=== PATIENT | male | born 1975 | race Two or more races ===

== ENCOUNTER 2025-09-20 04:39 | Inpatient (IN) | payer BC, SELFPAY ==
[2025-09-20] VITALS (22 sets, daily range): BP systolic 122–202; BP diastolic 62–116; PULSE 60–84; RESP 14–19; TEMP 36.1–37.1; O2SAT 95–99; BMI 26.3
--- NOTE | 2025-09-20 04:48 | EKG_ITS ---
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
--- NOTE | 2025-09-20 04:59 | XR_ITS ---
EXAMINATION: PA chest single view TECHNIQUE: Upright PA chest single view Date and time: September 20, 2025, 0457 hours INDICATIONS: Sudden onset chest pain radiating to the left arm today FINDINGS: Normal heart size No pneumonia or pulmonary edema. Old left clavicle fracture IMPRESSION: No active disease
--- NOTE | 2025-09-20 04:59 | PD.EDRME ---
Rapid Medical Screening Exam RME Arrival date/time: 09/20/25 04:39 50M with no significant PMH presents to ED with 1 hour of sudden L CP that radiates to LUE. Patient denies SOB and URI symptoms, as well as drug/alcohol use. Patient describes the pain as burning. There is also some nausea. Chief Complaint: Chest Pain Vital signs: Vital Signs Temperature 98.1 F 09/20/25 04:46 Pulse Rate 84 09/20/25 04:46 Respiratory Rate 19 09/20/25 04:46 Blood Pressure 202/106 H 09/20/25 04:46 Pulse Oximetry (%) 96 09/20/25 04:46 Oxygen Delivery Method Room Air 09/20/25 04:46
[2025-09-20] MEDS: FAMOTIDINE 20 MG TABLET 40 MG PO (05:07)
[2025-09-20] MEDS: ONDANSETRON ODT 4 MG TABRAP PO (05:07)
[2025-09-20 05:37] LABS: Amphetamine/Methamp Scrn,U Negative (Negative); Barbiturate Screen,Urine Negative (Negative); Benzodiazepines Screen,Urine Negative (Negative); Benzoylecgonine Screen, Ur Negative (Negative); Fentanyl Screen,Urine Negative (Negative); Opiate Screen,Urine Negative (Negative); THC Screen,Urine Negative (Negative)
[2025-09-20 06:16] LABS: Basophils # (Auto) 0.1 Thou/mm3 (0.0-0.2); Basophils % (Auto) 1 % (0-2.5); Eosinophils # (Auto) 0.5 Thou/mm3 (0.0-0.5); Eosinophils % (Auto) 4 % (0-10); Hematocrit 45.2 % (41.0-53.0); Hemoglobin 15.4 g/dL (13.5-16.0); Immature Granulocytes Auto 0.11 Thou/mm3 (0.00-0.00); Lymphocytes # (Auto) 2.2 Thou/mm3 (1.0-4.8); Lymphocytes % (Auto) 17 % (10-50); Mean Corpuscular HGB Conc 34.1 g/dl (31.0-37.0); Mean Corpuscular Hemoglobin 31.2 pg (25.0-35.0); Mean Corpuscular Volume 92 fL (80-100); Monocytes # (Auto) 0.6 Thou/mm3 (0.0-0.8); Monocytes % (Auto) 5 % (0-12); Neutrophils # (Auto) 9.7 Thou/mm3 (1.8-7.7); Neutrophils % (Auto) 74 % (37-80); Nucleated Red Blood Cell # 0.00 Thou/mm3 (0.00-0.00); Nucleated Red Blood Cell % 0 /100 WBC (0); Platelet Count 189 Thou/mm3 (140-440); RDW Standard Deviation 46.5 fL (35.1-43.9); Red Blood Count 4.94 Miln/mm3 (4.50-5.90); White Blood Count 13.1 Thou/mm3 (3.8-10.6)
[2025-09-20 06:27] LABS: INR 1.0 (0.9-1.3); Partial Thromboplastin Time 34.7 Seconds (22.0-36.0); Prothrombin Time 10.7 Seconds (9.0-12.2)
[2025-09-20 06:37] LABS: Alanine Aminotransferase 19 U/L (10-49); Albumin, Serum 4.5 gm/dL (3.5-5.0); Albumin/Globulin Ratio 2.1 (1.2-2.2); Alkaline Phosphatase 91 U/L (46-116); Anion Gap 11 (7-16); Aspartate Amino Transferase 42 U/L (0-34); BUN/Creatinine Ratio 12 Ratio (12-20); Bilirubin,Total 0.5 mg/dL (0.3-1.2); Blood Urea Nitrogen 12 mg/dL (9-23); Calcium 9.0 mg/dL (8.3-10.6); Calcium (Corrected) 9.0 mg/dL (8.5-10.1); Carbon Dioxide 20.0 mMol/L (20.0-31.0); Chloride 111 mMol/L (98-107); Creatinine (Component) 1.0 mg/dL (0.6-1.3); Estimated Creatinine Clearance 76.0 mL/min (>60); Globulin 2.1 gm/dL (2.3-3.5); Glucose 165 mg/dL (74-106); Osmolality,Calculated 286 (275-295); Potassium 4.1 mMol/L (3.4-5.1); Sodium 142 mMol/L (136-145); Total Protein 6.6 gm/dL (5.7-8.2); eGFR > 60 See Note
[2025-09-20 06:39] LABS: Troponin I 2.879 ng/mL (0.0-0.045)
--- NOTE | 2025-09-20 10:16 | EDNOTE_ITS ---
ED Chest Pain RME/HPI General Chief Complaint: Chest Pain Stated Complaint: CHEST PAIN Arrival date/time: 09/20/25 04:39 RME / HPI RME / HPI narrative: 09/20/25 04:39 50M with no significant PMH presents to ED with 1 hour of sudden L CP that radiates to LUE. Patient denies SOB and URI symptoms, as well as drug/alcohol use. Patient describes the pain as burning. There is also some nausea. DR. VELA MAIN ED EVALUATION 50 year old male patient with no known chronic medical history presents to the ED for evaluation of chest pain that woke him from sleep at 04:00 AM today. Described as pressure burning sensation located most to the left side, rating 8/10 in severity. Accompanied by sweats and nausea. Denies exacerbating/relieving factors. No history of similar chest pain. Denies fever, chills. Denies shortness of breath. Related Data Allergies Allergy/AdvReac Type Severity Reaction Status Date / Time No Known Allergies Allergy Verified 09/20/25 04:43 Review of Systems Review of Systems Systems Reviewed: All systems reviewed, normal except as documented Past Medical History Past Medical History CARDIAC: Negative Congestive Heart Failure RESPIRATORY: Negative Chronic Obstructive Pulmonary Disease (COPD) GENITOURINARY: Negative Renal Disease ENDOCRINE: Negative Diabetes Mellitus Type 1 or Diabetes Mellitus Type 2 Social History SMOKING STATUS: Current every day smoker ED Exam Narrative Physical exam: GENERAL APPEARANCE: alert and oriented x 4, well-developed, well-nourished HEENT: Normocephalic, atraumatic; pupils equal, round, reactive to light; EOMI; mucous membranes pink, moist; oropharynx clear NECK: Supple LUNGS: CTABL; no wheezes, no rales, no rhonchi HEART: Regular rate, regular rhythm; normal S1, S2; no murmurs ABDOMEN: non distended; normal BS; soft, no tenderness, no guarding, no rebound; no masses, no organomegaly, no hernia EXTREMITIES: atraumatic; no edema NEUROLOGIC: awake; alert and oriented x4; cranial nerves II-XII grossly intact; no focal sensory or motor deficits PSYCHIATRIC: appropriate mood and affect SKIN: warm, dry, normal color; no rashes Course Quality Measures none Orders Category Date Time Status Admit to Inpatient Status Routine Admission 09/20/25 09:48 Active Patient Condition Routine Admission 09/20/25 09:48 Ordered Activity as Tolerated Routine Care 09/20/25 09:49 Ordered Continuous Pulse Oximetry NOW Care 09/20/25 09:48 Completed EKG (ED ONLY) *Do not use* NOW Care 09/20/25 04:48 Completed Flu & Pneumonia Vaccine Screen ONCE Care 09/20/25 09:48 Active NPO NOW Care 09/20/25 09:49 Active Notify provider NEEDED Care 09/20/25 09:48 Active Notify provider NOW Care 09/20/25 09:50 Active Obtain weight daily Care 09/20/25 09:49 Active Sequential Compression Device QSHIFT Care 09/20/25 09:48 Active Consult to Cardiology Stat Cons 09/20/25 09:46 Ordered Diet NPO (NOW) Diet 09/20/25 09:49 Active CA echo doppler complete Routine Exams 09/20/25 09:50 Stop Req EKG (ED Only) Stat Exams 09/20/25 04:48 Draft XR chest 1V portable Stat Exams 09/20/25 04:59 Completed CBC AM DRAW Lab 09/21/25 05:00 Ordered CBC AM DRAW Lab 09/22/25 05:00 Ordered CBC AM DRAW Lab 09/23/25 05:00 Ordered CBC Stat Lab 09/20/25 06:00 Completed Comprehensive Metabolic Panel AM DRAW Lab 09/21/25 05:00 Ordered Comprehensive Metabolic Panel AM DRAW Lab 09/22/25 05:00 Ordered Comprehensive Metabolic Panel AM DRAW Lab 09/23/25 05:00 Ordered Comprehensive Metabolic Panel Stat Lab 09/20/25 06:00 Completed Drug Screen,Urine Stat Lab 09/20/25 05:06 Completed Lipid Panel AM DRAW Lab 09/21/25 05:00 Ordered Magnesium AM DRAW Lab 09/21/25 05:00 Ordered Partial Thromboplastin Time AM DRAW Lab 09/22/25 05:00 Ordered Partial Thromboplastin Time Stat Lab 09/20/25 06:00 Completed Phosphorous AM DRAW Lab 09/21/25 05:00 Ordered Prothrombin Time with INR AM DRAW Lab 09/22/25 05:00 Ordered Prothrombin Time with INR Stat Lab 09/20/25 06:00 Completed Thyroid Stimulating Hormone AM DRAW Lab 09/21/25 05:00 Ordered Troponin I Q6H Lab 09/20/25 11:03 Completed Troponin I Q6H Lab 09/20/25 17:00 Ordered Troponin I Q6H Lab 09/20/25 23:00 Ordered Troponin I Stat Lab 09/20/25 06:00 Completed Aspirin Med 09/20/25 04:59 Discontinued 325 mg PO X1 ONE Aspirin [Ecotrin] Med 09/21/25 09:00 Active 81 mg PO QDAY Atorvastatin Calcium [Lipitor] Med 09/20/25 21:00 Active 40 mg PO HS Famotidine [Pepcid] Med 09/20/25 04:59 Discontinued 40 mg PO X1 ONE Heparin Inj Med 09/20/25 09:48 Discontinued 4,000 unit IV X1 ONE Heparin/D5w 25K 250 ML Ivpb [Heparin in D5w Ivpb] Med 09/20/25 10:00 Active 25,000 unit in 250 ml IV 12 units/kg/hr Labetalol IV [Trandate IV] Med 09/20/25 06:41 Discontinued 10 mg IVP X1 ONE Ondansetron Inj [Zofran Inj] Med 09/20/25 09:48 Active 4 mg IVP Q6H PRN Ondansetron Odt [Zofran Odt] Med 09/20/25 04:59 Discontinued 4 mg PO X1 ONE Code Status Routine Oth 09/20/25 09:48 Ordered Vital Signs Vital signs: Vital Signs Temperature 98.1 F 09/20/25 04:46 Pulse Rate 84 09/20/25 04:46 Respiratory Rate 19 09/20/25 04:46 Blood Pressure 202/106 H 09/20/25 04:46 Pulse Oximetry (%) 96 09/20/25 04:46 Oxygen Delivery Method Room Air 09/20/25 04:46 Pulse ox is 96% on room air which is adequate. Chest Pain MDM Narrative MDM Narrative:: Roselia John am scribing for and in the presence of Dr. Vela. Patient data External records reviewed:: None (No previous ER visits for review ) Clinical information provided by:: patient Social determinants that could affect healthcare access:: none Patient has the following chronic illnesses:: No known chronic medical history How is presenting disease/condition affected by chronic disease/condition?: no chronic disease Evaluation data The following diagnostics were reviewed and interpreted by me:: lab results, radiology exam(s) and EKG tracing(s) (EKG @ 04:49 AM. Sinus rhythm, rate 82, T- wave inversion in V1, slight ST depression in lead III, no STEMI. ) Lab and/or radiology exams considered but not ordered:: None Interpretation Summary: Ordering Physician: Gatito Ricardo PA-C Date of Service: 09/20/25 Procedure(s): XR chest 1V portable Accession Number(s): [id number] cc: Romeo Brito MD; Brayan Barakat MD; Gatito Ricardo PA-C~ EXAMINATION: PA chest single view TECHNIQUE: Upright PA chest single view Date and time: September 20, 2025, 0457 hours INDICATIONS: Sudden onset chest pain radiating to the left arm today FINDINGS: Normal heart size No pneumonia or pulmonary edema. Old left clavicle fracture IMPRESSION: No active disease Dictated By: Brayan Barakat MD Signed By: <Electronically signed by Brayan Barakat MD in OV> 09/20/25 075 Medications / Prescriptions Medications or Prescriptions considered but not ordered:: None Medication administrations:: Medication Administration History Aspirin (Aspirin Ec 81 Mg Tabec) 81 mg PO QDAY TYRESE Stop: 10/21/25 08:59 Atorvastatin Calcium (Atorvastatin Calcium 20 Mg Tablet) 40 mg PO HS TYRESE Stop: 10/20/25 20:59 Heparin Sodium/Dextrose (Heparin In D5w Ivpb) 25,000 unit in 250 mls @ 8.61 mls/hr IV .Q24H TYRESE; Protocol Stop: 10/04/25 09:59 Last Admin: 09/20/25 11:00 Dose: 12 units/kg/hr, 8.61 mls/hr Documented By: AA Co-signed By: SERINA Ondansetron HCl (Ondansetron Inj 2 Mg/Ml Inj 2 Ml) 4 mg IVP Q6H PRN; Protocol PRN Reason: NAUSEA OR VOMITING Stop: 10/20/25 09:47 Discontinued Medications Aspirin (Aspirin 325 Mg Tablet) 325 mg PO X1 ONE Stop: 09/20/25 05:00 Last Admin: 09/20/25 05:07 Dose: 325 mg Documented By: CHAVEZ Atropine Sulfate (Atropine Sulf Inj 1 Mg/Ml Vial) Confirm Administered Dose 1 mg .ROUTE .STK-MED ONE Stop: 09/20/25 12:44 Epinephrine HCl (Epinephrine Inj 0.1 Mg/Ml Syringe 10ml) Confirm Administered Dose 1 mg .ROUTE .STK-MED ONE Stop: 09/20/25 12:45 Famotidine (Famotidine 20 Mg Tablet) 40 mg PO X1 ONE Stop: 09/20/25 05:00 Last Admin: 09/20/25 05:07 Dose: 40 mg Documented By: CHAVEZ Fentanyl Citrate (Fentanyl Cit Inj 50 Mcg/Ml Amp 2ml) Confirm Administered Dose 100 mcg .ROUTE .STK-MED ONE Stop: 09/20/25 12:44 Flumazenil (Flumazenil Inj 0.1 Mg/Ml Vial 10 Ml) Confirm Administered Dose 1 mg .ROUTE .STK-MED ONE Stop: 09/20/25 12:44 Heparin Sodium (Porcine) (Heparin Sod Inj 5000 Unit/Ml Vial) 4,000 unit IV X1 ONE; Protocol Stop: 09/20/25 09:49 Last Admin: 09/20/25 10:58 Dose: 4,000 unit Documented By: MARCELA Co-signed By: SERINA Heparin Sodium (Porcine) (Heparin Sod Inj 1000 Unit/Ml Vial 10 Ml) Confirm Administered Dose 20,000 unit .ROUTE .STK-MED ONE Stop: 09/20/25 12:45 Nitroglycerin/Dextrose (Nitroglycerin In D5w Ivpb) Confirm Administered Dose 50 mg in 250 mls @ ud .ROUTE .STK-MED ONE Stop: 09/20/25 12:45 Labetalol HCl (Labetalol Inj 5 Mg/Ml Vial 20 Ml) 10 mg IVP X1 ONE Stop: 09/20/25 06:42 Last Admin: 09/20/25 06:52 Dose: Not Given Documented By: CIRILO Non-Admin Reason: Cancelled by Provider Lidocaine HCl (Lidocaine Inj Pf 1% 30 Ml Vial) Confirm Administered Dose 30 ml .ROUTE .STK-MED ONE Stop: 09/20/25 12:45 Metoprolol Tartrate (Metoprolol Tartrate Inj 1 Mg/Ml Amp 5 Ml) Confirm Administered Dose 15 mg .ROUTE .STK-MED ONE Stop: 09/20/25 12:44 Midazolam HCl (Midazolam Inj 1 Mg/Ml Vial 2 Ml) Confirm Administered Dose 2 mg .ROUTE .STK-MED ONE Stop: 09/20/25 12:43 Naloxone HCl (Naloxone Inj 0.4 Mg/Ml Vial) Confirm Administered Dose 1.2 mg .ROUTE .STK-MED ONE Stop: 09/20/25 12:44 Ondansetron HCl (Ondansetron Odt 4 Mg Tabrap) 4 mg PO X1 ONE; Protocol Stop: 09/20/25 05:00 Last Admin: 09/20/25 05:07 Dose: 4 mg Documented By: CHAVEZ Phenylephrine HCl (Phenylephrine Inj In Ns 100 Mcg/Ml 10 Ml Syringe) Confirm Administered Dose 1,000 mcg .ROUTE .STK-MED ONE Stop: 09/20/25 12:45 See above Consultations Consultation(s) initiated? (list below): Yes Consultation #1 (Physician, Specialty, Details): I spoke with computer systems information director Dr. Tavares. Consultation #2 (Physician, Specialty, Details): I spoke with hospitalist team B for admission. Diagnosis Most likely diagnosis given after review of the tests above:: Chest pain Elevated troponin Admission Indicated Admission indicated?: indicated Admission Request Was there a request for admission?: Yes Admission Attestation Admission request attestation: Discussed case with [] from Hospitalist service regarding admission. Discussed patients ED course, exam findings, labs, and radiology results. The Hospitalist [agrees,declines] to accept the patient for admission. Disposition Plan Disposition Plan: Admit Critical Care Time Critical Care Time Critical Care Time: Yes Total Critical Care Time (min.): 35 Attestation: The high probability of sudden, clinically significant deterioration in the patient's condition required the highest level of my preparedness to intervene urgently. The services I provided to this patient were to treat and/or prevent clinically significant deterioration. Services included the following: chart data review, reviewing nursing notes and/or old charts, documentation time, water resource consultant collaboration regarding findings and treatment options, medication orders and management, direct patient care, vital sign assessments and ordering, interpreting and reviewing diagnostic studies and lab tests. Aggregate critical care time includes only time during which I was engaged in work directly related to the patient's care, as described above, whether at bedside or elsewhere in the Emergency Department. It did not include time spent performing other reported procedures or the services of residents, students, nurses or physician assistants. Discharge Plan Plan Patient Disposition: Admit Acute Care w/in Hospital Problem List Clinical Impression: Chest pain, Elevated troponin
--- NOTE | 2025-09-20 10:56 | PC.NURSE ---
CARDIOLOGY ALUMDALA AT BEDSIDE SPEAKING WITH PATIENT AND FAMILY.
[2025-09-20] MEDS: HEPARIN SOD INJ 5000 UNIT/ML VIAL 4000 UNIT IV (10:58)
[2025-09-20] MEDS: Heparin/D5w 25K 250 ML Ivpb 25,000 UNIT/250 ML BAG 8.61 UNIT IV ×2 (11:00→18:31)
--- NOTE | 2025-09-20 11:26 | PC.NURSE ---
Patient OOB, ambulated to restroom, no apparent distress noted. Patient remains alert/oriented, denies chest pain at this time.
--- NOTE | 2025-09-20 11:35 | PC.NURSE ---
DR SAENZ AT BEDSIDE SPEAKING WITH PATIENT AND SPOUSE
--- NOTE | 2025-09-20 11:49 | ESHP_ITS ---
<Statement entered by Susana Vasquez MD - 09/25/25 08:35> I reviewed above note and agree with findings and plans. I have also personally examined the patient with medicine team and went over assessment and plan with medical team including project management intern and resident physician. Documentation for date of: 09/20/25 HPI History of Present Illness Chief complaint: Chest pain History of present illness: 50 year old male with history of tobacco dependence (>30 pack year), alcohol-use disorder, family history of stroke/heart attack presented to the ED on 09/20 with chest pain. Patient's ida provided history regarding the patient. Patient was apparently getting ready for work when he started to feeling chest pressure. As per , he looked winded and seemed off which prompted them to come to the ED. Patient denies any symptoms of palpitations, shortness of breath, dizziness, syncope, orthopnea or PND. 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 Pertinent lab findings include WBC of 13.1, hemoglobin of 15.4, creatinine 1.0, BUN 12, AST 42, ALT 19, troponin initially was 2.879 has up trended to 45.494, U tox was negative, EKG showed sinus rhythm with some ST elevations noted in the lateral leads and chest x-ray was largely negative. Cardiology was consulted and recommended starting patient on IV heparin to take to cardiac Data Analysis Manager for NSTEMI Patient admitted for NSTEMI type I will be treated with IV heparin, Data Analysis Manager for likely stent placement and close follow-up. Exam Vital Signs Temp Pulse Resp BP Pulse Ox O2 Del Method 97.6 F 72 16 148/95 H 97 Room Air 09/20/25 10:29 09/20/25 10:29 09/20/25 10:29 09/20/25 10:29 09/20/25 10:29 09/20/25 10:29 Narrative Exam Physical Exam: GENERAL: Awake, answering questions appropriately in Bengali HEENT: NC/AT. Moist mucosa. PERRLA/EOMI. Poor dentition. CARDIO: Heart RRR, no obvious murmurs, no JVD. PULM: No coughing or visible SOB. Lungs CTA B/L. GI: Abdomen soft, NT/ND, +BS. SKIN/MSK/EXT: No wounds/discoloration/rashes/edema/amputations. +Pedal pulses present B/L. NEURO: Oriented x3, Moves extremities x4, no focal neurologic deficits Results: Labs 09/20/25 06:00 09/20/25 06:00 Labs: Short CBC 09/20/25 Range/Units 06:00 WBC 13.1 H (3.8-10.6) Thou/mm3 Hgb 15.4 (13.5-16.0) g/dL Hct 45.2 (41.0-53.0) % Plt Count 189 (140-440) Thou/mm3 BMP 09/20/25 06:00 Sodium 142 Potassium 4.1 Chloride 111 H Carbon Dioxide 20.0 BUN 12 Creatinine 1.0 Glucose 165 H Calcium 9.0 Cardiac Enzymes 09/20/25 Range/Units 06:00 Troponin I 2.879 H* (0.0-0.045) ng/mL Liver Function 09/20/25 Range/Units 06:00 Total Bilirubin 0.5 (0.3-1.2) mg/dL AST 42 H (0-34) U/L ALT 19 (10-49) U/L Alkaline Phosphatase 91 (46-116) U/L Albumin 4.5 (3.5-5.0) gm/dL Quality Measures Quality Measures none Medications Home Medications and Allergies Allergies Allergy/AdvReac Type Severity Reaction Status Date / Time No Known Allergies Allergy Verified 09/20/25 04:43 Visit Medications Aspirin (Aspirin Ec 81 Mg Tabec) 81 mg PO QDAY TYRESE Stop: 10/21/25 08:59 Atorvastatin Calcium (Atorvastatin Calcium 20 Mg Tablet) 40 mg PO HS TYRESE Stop: 10/20/25 20:59 Heparin Sodium/Dextrose (Heparin In D5w Ivpb) 25,000 unit in 250 mls @ 8.61 mls/hr IV .Q24H TYRESE; Protocol Stop: 10/04/25 09:59 Last Admin: 09/20/25 11:00 Dose: 12 units/kg/hr, 8.61 mls/hr Ondansetron HCl (Ondansetron Inj 2 Mg/Ml Inj 2 Ml) 4 mg IVP Q6H PRN; Protocol PRN Reason: NAUSEA OR VOMITING Stop: 10/20/25 09:47 Discontinued Medications Aspirin (Aspirin 325 Mg Tablet) 325 mg PO X1 ONE Stop: 09/20/25 05:00 Last Admin: 09/20/25 05:07 Dose: 325 mg Famotidine (Famotidine 20 Mg Tablet) 40 mg PO X1 ONE Stop: 09/20/25 05:00 Last Admin: 09/20/25 05:07 Dose: 40 mg Heparin Sodium (Porcine) (Heparin Sod Inj 5000 Unit/Ml Vial) 4,000 unit IV X1 ONE; Protocol Stop: 09/20/25 09:49 Last Admin: 09/20/25 10:58 Dose: 4,000 unit Labetalol HCl (Labetalol Inj 5 Mg/Ml Vial 20 Ml) 10 mg IVP X1 ONE Stop: 09/20/25 06:42 Last Admin: 09/20/25 06:52 Dose: Not Given Ondansetron HCl (Ondansetron Odt 4 Mg Tabrap) 4 mg PO X1 ONE; Protocol Stop: 09/20/25 05:00 Last Admin: 09/20/25 05:07 Dose: 4 mg Assessment & Plan Plan 50 year old male with history of tobacco dependence (>30 pack year), alcohol-use disorder, family history of stroke/heart attack presented with chest pain was admitted for NSTEMI type I will be treated with IV heparin, Data Analysis Manager for likely stent placement and close follow-up. #NSTEMI type I #Acute coronary syndrome Patient presenting with typical chest pain symptoms as noted above in HPI 53?points RA Score 0.8?% Probability of from admission to 6 months Will calculate ASCVD risk score troponin initially was 2.879 has up trended to 45.494 EKG showed sinus rhythm with some ST elevations noted in the lateral leads and chest x-ray was largely negative Cardiology was consulted and recommended starting patient on IV heparin to take to cardiac Data Analysis Manager for NSTEMI Plan: Echo ordered, pending read Continue IV heparin drip for ACS for 2 additional days Aspirin, high intensity statin, Plavix, metoprolol tartrate 25 mg p.o. twice daily for ACS Cardiology consulted, appreciate recommendations status post left heart cath pending report Follow-up on lipid panel, TSH and A1c Keep magnesium greater than 2 and potassium greater than 4 Patient will need close monitoring outpatient and cardiology referral once ready to be discharged #Hypertensive emergency #Hypertension As noted above, patient presented with hypertensive emergency with a blood pressure of 202/106 and endorgan dysfunction noted by troponin anemia Patient was given labetalol 10 mg x 1 which largely improved systolic blood pressure to low 160 and diastolic in the 90s Plan: Will await left heart cath results and consider adding antihypertensives when patient is stable #Alcohol use disorder As per patient's family at bedside, patient drinks multiple glasses of tequila daily along with beer on the weekends Patient's last drink was yesterday noted to have three fourths of a cup of tequila Plan: Will commence CIWA protocol with as needed Ativan #Tobacco dependence Patient smokes around 1 pack a day for the past 30 years Plan: Will hold off on nicotine patch at this time Counseled on complete cessation from tobacco use Health Maintenance: Lines: PIV Diet: Will advance to cardiac Bowel: Not needed at this time GI prophylaxis: Not needed DVT prophylaxis: On heparin drip for 2 days Dispo: Pending cardiac clearance, left heart cath completed Code: Full Patient seen and assessed with attending Dr. Christina Sandra, DO PGY-2 Internal Medicine - [facility]
[2025-09-20 11:55] LABS: Troponin I 45.494 ng/mL (0.0-0.045)
--- NOTE | 2025-09-20 12:04 | PC.NURSE ---
REPORT GIVEN TO MASON FOSTER PATIENT TRANSFERRING TO WAITRESS FOR PROCEDURE.
--- NOTE | 2025-09-20 13:13 | PD.RESCONSUL ---
HPI Data of Consult Requesting Physician: Edward Sandra MD Admitting Provider: Susana Vasquez MD Attending Provider: Edward Sandra MD Primary Care Provider: Romeo Brito MD Consult Narrative History of present illness: Patient is a Burmese speaking 50 year old male with PMH of tobacco abuse, alcohol abuse, family history of heart attack who presents on 09/20 for 10 out of 10 left-sided chest pain that radiated down his left arm earlier this morning. Improved with nitro. Currently denies any chest pain, shortness of breath, palpitations. Denies history of hypertension, HLD, and diabetes as he does not follow-up with a PCP, not on any medications. On admission, BP 202/160, HR 84, RR 19. Saturating well on room air. WBC 13.1 Hgb 15.4, creatinine 1.0, BUN 12. Troponin 2.879 -> 45.494. EKG at 4 AM showed sinus rhythm with Q waves in aVL and <[address] depression lead III, HR 82. Repeat EKG at around 10 AM showed T wave inversions in lead III with same Q waves. CXR was unremarkable. Patient was started on IV heparin. Echo completed at bedside. Prior to procedure, discussed with patient the risk, benefits, and alternatives of performing a cardiac catherization including the risks of bleeding, heart attack, stroke, pericardial effusion, respiratory failure with mechanical ventilation, and in detail with the patient. Patient understands the risks and benfits with the procedure. Consent signed and placed in the chart. Sent to microbiology lab assistant for NSTEMI. Past Medical History: as above Family History: Mother had NM in her 60s, had stent placed. Father passed from liver disease secondary to alcohol abuse. Surgical History: None Social History: Smoked 1 pack/day for more than 30 years. Heavy alcohol consumption for at least 20 years, drinks at least 4 times a week. Denies any illicit drug use. Lives at home with and kids. Current Medications: None Allergies: No known drug allergies cc:: cc: Edward Sandra MD Exam Vital Signs Temp Pulse Resp BP Pulse Ox O2 Del Method 98.2 F 74 16 152/96 H 96 Room Air 09/20/25 12:41 09/20/25 12:41 09/20/25 12:41 09/20/25 12:41 09/20/25 12:41 09/20/25 12:41 Narrative Exam Physical Exam General: Awake and in no acute distress. Conversational and non-toxic appearing. Burmese-speaking male. HEENT: Normocephalic, atraumatic, mucous membranes moist. Heart: Regular rate and rhythm, normal S1 and S2, no murmurs appreciated. Lungs: Clear to auscultation with no wheezing or crackles. Abdomen: Soft, nondistended, nontender, positive bowel sounds. No guarding or rebound tenderness. Neurologic: Alert and oriented x3, no gross neurological deficit, and patient able to move all 4 extremities. Extremities: No edema. Skin: No rash or ecchymoses. Results Labs 09/20/25 06:00 09/20/25 06:00 Labs: Short CBC 09/20/25 Range/Units 06:00 WBC 13.1 H (3.8-10.6) Thou/mm3 Hgb 15.4 (13.5-16.0) g/dL Hct 45.2 (41.0-53.0) % Plt Count 189 (140-440) Thou/mm3 BMP 09/20/25 06:00 Sodium 142 Potassium 4.1 Chloride 111 H Carbon Dioxide 20.0 BUN 12 Creatinine 1.0 Glucose 165 H Calcium 9.0 Cardiac Enzymes 09/20/25 09/20/25 Range/Units 06:00 11:03 Troponin I 2.879 H* 45.494 H* D (0.0-0.045) ng/mL Liver Function 09/20/25 Range/Units 06:00 Total Bilirubin 0.5 (0.3-1.2) mg/dL AST 42 H (0-34) U/L ALT 19 (10-49) U/L Alkaline Phosphatase 91 (46-116) U/L Albumin 4.5 (3.5-5.0) gm/dL Quality Measures Quality Measures none Medications Home Medications and Allergies Allergies Allergy/AdvReac Type Severity Reaction Status Date / Time No Known Allergies Allergy Verified 09/20/25 04:43 Visit Medications Aspirin (Aspirin Ec 81 Mg Tabec) 81 mg PO QDAY TYRESE Stop: 10/21/25 08:59 Atorvastatin Calcium (Atorvastatin Calcium 20 Mg Tablet) 40 mg PO HS TYRESE Stop: 10/20/25 20:59 Heparin Sodium/Dextrose (Heparin In D5w Ivpb) 25,000 unit in 250 mls @ 8.61 mls/hr IV .Q24H TYRESE; Protocol Stop: 10/04/25 09:59 Last Admin: 09/20/25 11:00 Dose: 12 units/kg/hr, 8.61 mls/hr Ondansetron HCl (Ondansetron Inj 2 Mg/Ml Inj 2 Ml) 4 mg IVP Q6H PRN; Protocol PRN Reason: NAUSEA OR VOMITING Stop: 10/20/25 09:47 Discontinued Medications Aspirin (Aspirin 325 Mg Tablet) 325 mg PO X1 ONE Stop: 09/20/25 05:00 Last Admin: 09/20/25 05:07 Dose: 325 mg Famotidine (Famotidine 20 Mg Tablet) 40 mg PO X1 ONE Stop: 09/20/25 05:00 Last Admin: 09/20/25 05:07 Dose: 40 mg Heparin Sodium (Porcine) (Heparin Sod Inj 5000 Unit/Ml Vial) 4,000 unit IV X1 ONE; Protocol Stop: 09/20/25 09:49 Last Admin: 09/20/25 10:58 Dose: 4,000 unit Labetalol HCl (Labetalol Inj 5 Mg/Ml Vial 20 Ml) 10 mg IVP X1 ONE Stop: 09/20/25 06:42 Last Admin: 09/20/25 06:52 Dose: Not Given Ondansetron HCl (Ondansetron Odt 4 Mg Tabrap) 4 mg PO X1 ONE; Protocol Stop: 09/20/25 05:00 Last Admin: 09/20/25 05:07 Dose: 4 mg Assessment & Plan Plan Patient is a Burmese speaking 50 year old male with PMH of tobacco abuse, alcohol abuse, family history of heart attack who presents on 09/20 for 10 out of 10 left-sided chest pain that radiated down his left arm earlier this morning. Admitted for NSTEMI and cardiac cath. #NSTEMI #Hypertensive emergency #Tobacco abuse #Alcohol abuse Presented with severe sudden onset of left-sided chest pain that radiated down his left arm prior to admission. No known medical history besides chronic tobacco and alcohol abuse. Note patient's mother had NM in her 60s, stent placed. BP 202/160, HR 84, improved s/p labetolol x1. Troponin 2.879 -> 45.494. EKG at 4 AM showed sinus rhythm with Q waves in aVL and <[address] depression lead III, HR 82. Repeat EKG at around 10 AM showed T wave inversions in lead III with same Q waves. S/p IV heparin bolus and drip in ED. Echo 09/20 showed normal LV function and size. Grade I diastolic dysfunction. Approximate EF 55-60%. Normal RV size and function. Mild aortic valve sclerosis without stenosis. Trace TR and MR. Prior to procedure, discussed with patient the risk, benefits, and alternatives of performing a cardiac catherization including the risks of bleeding, heart attack, stroke, pericardial effusion, respiratory failure with mechanical ventilation, and in detail with the patient. Patient understands the risks and benfits with the procedure. Consent signed and placed in the chart. Cath 09/20/25: LHC showed moderate CAD with mild 20-30% stenosis of mid LAD, 50-60% stenosis of mid diagonal 1, 30-40% stenosis of proximal diagonal 2, moderate 40-50% stenosis of mid LCx, minimal disease of OM1, mild 20-30% of mid RCA, moderate 40% stenosis of mid RPDA, 20-30% stenosis of mid RPL. Rest of coronaries branches with only minimal luminal irregularities and no angiographically significant obstruction. LVEF normal at 55-60% and LVEDP normal at 12 mmHg. No significant transvalvular aortic gradient. Plan: - Patient has many risk factors including age and significant history of tobacco and alcohol abuse. Patient also likely has uncontrolled HTN and HLD. Cath results above. - Continue IV heparin drip for 48 hours for anticoagulation given concern of ACS. - Recommend aspirin 325 mg x 1, aspirin 81 mg once daily, Plavix 75 mg daily, and high intensity statin, preferably atorvastatin 80 mg daily. - Metoprolol XL 25 mg daily if hemodynamically stable. Oxygen as needed and pain control with morphine if needed. Echo ordered to rule out any regional wall motion abnormalities, evaluate LV function, RV function, diastolic function and any valvular abnormalities. - Check TSH A1c and lipid profile for further cardiac risk stratification. - Counseled patient on smoking cessation to avoid further worsening of CAD. Thank you for your consultation, please do not hesitate to reach out if you have any question or concern Patient plan of care was discussed with the attending physician, Dr. Tavares. Em Sotomayor, PGY-1 Attending Provider Attestation/Addendum I have personally seen and examined the patient separately on the above date of service and discussed the plan of care with the resident. I reviewed the resident Dr. Em Sotomayor consultation progress note and agree with the resident findings and plan in the note above and have also edited the documentation to reflect my findings and plan. A 50-year-old male with a past medical history of tobacco abuse with a greater than 35 pack years of smoking started the age of 14, alcohol abuse with at least more than 12 beers in a week, family history of heart disease with NM as well as CABG in the 60s per his mother, does not visit doctors regularly, presented to the emergency department on 09/20/2025 morning at 4 AM for severe substernal chest pain of 10 out of 10 intensity radiating down the left arm associated with sweating as well as diaphoresis. Patient never experienced similar pain before. immediately called 911 and patient did receive nitroglycerin en route to the emergency department. Entire episode lasted around 30 minutes to an hour. In the emergency department initial EKG performed showed normal sinus rhythm with Q waves in the aVL with minimal ST elevation of less than 0.5 mm but no no other consecutive leads with any significant changes. Minimal ST depressions only in lead III. There is no evidence of any STEMI but the initial troponins was elevated to 0.879. Patient initially was hypertensive on arrival but later on his blood pressure was around 150 mmHg. He has never been diagnosed of hypertension. Rest of the vitals and labs are stable including normal renal function. Cardio consulted for further evaluation. 1. Acute coronary syndrome 2. NSTEMI mostly type I 3. Hypertensive emergency 4. Family history of heart disease 5. History of tobacco abuse greater than 35 pack years 6. Alcohol abuse greater than 12 beers per week Patient presented with typical chest pain episode and had elevated troponins with NSTEMI at 2.78 concerning for ACS.Patient also has significant family history of heart disease per his mother with NM in her 60s and had possible stent placements along with a CABG done later along with risk factors for tobacco abuse, alcohol abuse as well as hypertension and hence was recommended urgent/emergent cardiac catheterization. Recommended aspirin 325 mg x 1 statin and aspirin 81 mg once daily. Heparin 5000 units bolus along with heparin drip given NSTEMI High intensity statin Lipitor 80 mg once daily Check TSH A1c lipid profile and free T4 for further cardiac risk stratification. Recommend stat echo to rule out any kind of regional wall motion abnormalities and echo 09/20/2025 showed normal LV function with an EF of 55 to 60%. Normal LV function and no major valvular abnormalities. No pericardial effusion. I discussed the risk benefits and alternatives with the patient as well as the who was at the bedside including the risks of bleeding, heart attack, stroke and in detail. Patient agreeable for the procedure and will keep him n.p.o. and plan to do it in the next 1 to 2 hours. Radial approach explained to the patient along with the femoral approach. For his elevated blood pressure we will continue to monitor it closely and will patient needs to be started possible ARB and eventually a beta-kala. There is a high probability of sudden, clinically significant or life threatening deterioration in the patient condition which required the highest level of physician preparedness to intervene urgently. I have personally spent 65 minutes of critical care time, exclusive of time spent on any procedures, in evaluation and management of this critically ill patient. Management of rest of the medical conditions as per primary team and other consultants. Thank you for the consult and allowing me to participate in the care of the patient. Cardiology will continue to follow. Francisco Tavares M.D. Interventional Cardiology
--- NOTE | 2025-09-20 15:38 | PC.NURSE ---
1410 Patient is awake, alert, breathing unlabored, s/p LHC by Dr. Tavares, TR band present to right wrist, no bleeding or hematoma noted, report received from Nicole FOSTER, patient to recover in cathead worker until TR band off. Heparin drip to be discontinued, no longer needed. 1452 2ml air removed from TR band since hemostasis time 1352. No bleeding or hematoma noted.
[2025-09-20] MEDS: hydrALAZINE INJ 20 MG/ML VIAL 10 MG IVP (16:02)
--- NOTE | 2025-09-20 16:08 | ESOP_ITS ---
Cardiac Cath Procedure Procedure Name Date of procedure: 09/20/25 CASHIER COURTESY BOOTH: Francisco Tvaares MD PROCEDURE PERFORMED: 1. Left heart cardiac catheterization- Left and right coronary angiograms with LVEDP measurement and left ventriculogram 2. Ultrasound-guided access of the right radial artery 3. Conscious sedation for 30 minutes.. Procedure Narrative HISTORY AND INDICATIONS: A 50-year-old male with a past medical history of tobacco abuse with a greater than 35 pack years of smoking started the age of 14, alcohol abuse with at least more than 12 beers in a week, family history of heart disease with KS as well as CABG in the 60s per his mother, does not visit doctors regularly, presented to the emergency department on 09/20/2025 morning at 4 AM for severe substernal chest pain of 10 out of 10 intensity radiating down the left arm associated with sweating as well as diaphoresis. Initial EKG performed showed normal sinus rhythm with Q waves in the aVL with minimal ST elevation of less than 0.5 mm but no no other consecutive leads with any significant changes. Minimal ST depressions only in lead III. There is no evidence of any STEMI but the initial troponins was elevated to 2.879 and later increased to 45. Given the elevated troponins and NSTEMI type I patient was recommended a left heart cardiac catheterization.Patient was explained the risk benefits and alternatives of performing a left heart cardiac catheterization including the risk of bleeding, heart attack, stroke and in detail and the agreeable for the procedure. Consent signed, placed in the chart and H&P updated. DESCRIPTION OF PROCEDURE: The patient was brought to the cardiac catheterization lab and all asceptic precautions were followed. Patient was given 1 Mg of Versed and 50 mcg of fentanyl for moderate conscious sedation. 2 mL of lidocaine was given in the right wrist. The right radial artery was accessed via the ultrasound guidance as well as micropuncture technique. A 6 Slovenian glide sheath was introduced. We then used a 5 Slovenian TIG 4 catheter to perform the left and right coronary angiograms as well as a left ventriculogram which showed the following findings. 1. Left ventricular ejection fraction was normal at 55-60% without any regional wall motion abnormalities. LVEDP was normal at 12 mmHg. There was no significant transvalvular aortic gradient. 2. Right dominant circulation 3. Left main artery is a large-caliber vessel gives rise to LAD, LCX and without any significant disease. 4. LAD is a large sized artery with mild 20-30% stenosis of proximal segment. LAD gives rise to a medium size diagonal 1 with 50-60% stenosis of mid segment, and a medium sized diagonal 2 with 30-40% stenosis of proximal segment. 5. LCx is a large sized artery with moderate 40-50% stenosis of mid segment, gives rise to a medium OM1 with minimal disease and small OM2 without any significant disease. 6. RCA is a large artery with mild stenosis of 30 to 40% in the proximal segment along with 30% in the distal RCA as well as 20 to 30% in the RPL with mi nimal disease in the RPDA A radial band was used to achieve the hemostasis of the right radial artery access. Patient will be monitored in the cardiac k9 handler for the next 2 to 3 hours and will be discharged to telemetry later today if hemodynamically stable. Complications: None Specimens: None Blood loss: Estimated 5-10 ml Summary/findings: 1. Acute coronary syndrome-NSTEMI type I: LHC showed moderate CAD 50-60% stenosis of mid diagonal 1, moderate 40-50% stenosis of mid LCx and rest of the arteries with mild disease as noted below. Mild 20 to 30% % stenosis of mid LAD, 30-40% stenosis of proximal diagonal 2, , minimal disease of OM1, mild stenosis of around 30% of the proximal RCA, distal RCA as well as RPL. Stenosis of mid RPDA, 20-30% stenosis of mid RPL. 2. LVEF normal at 55-60% and LVEDP normal at 12 mmHg. No significant transvalvular aortic gradient. Recommendations: 1. Patient presented with chest pain along with elevated troponins up to 45. LHC did not show any any 100% occluded arteries or any evidence of severe CAD. He has only moderate CAD in LCx as well as the D1 and rest of the arteries only showed mild CAD. Etiology differential mostly includes significant coronary spasm from his chronic smoking for greater than 35 pack years versus less likely transient thrombotic occlusion of a small coronary artery branches which possibly recanalized with medical treatment. 2. Recommend aggressive medical treatment with recommendation to continue heparin drip for another 48 hours along with aspirin 81 mg once daily along with Plavix 75 mg once daily, high intensity statin Lipitor 80 mg once daily and beta-kala. 3. Recommend aggressive risk factor modification especially to quit smoking completely given the possibility of severe coronary spasm and also to recommend to quit alcohol use. 4. Recommended no lifting more than 5 pounds for next 7-10 days and follow up in my office in 7 days. Francisco Tavares MD Interventional Cardiology.
--- NOTE | 2025-09-20 16:17 | PC.NURSE ---
1540 Tr band removed, small hematoma developed, manual pressure applied 1555 Manual pressure removed from right wrist, no bleeding or hematoma noted, site covered with tegaderm and coban. Patient BP increased, hydralazine 10mg given IVP for BP management. 1617 patient is awake, alert, breathing unlabored, dressing to right wrist dry with no bleeding or hematoma, report given to Rafat FOSTER, patient transferred to tele room 275 for admission. Belongings are with patient's family. Patient's family member made aware of new room number. Hospitalist called and stated heparin needs to be started at 1800, new order placed, rafat receiving nurse made aware. Ptt also ordered at 1700 prior to starting heparin drip.
[2025-09-20] MEDS: LEVALBUTEROL RT 1.25 MG/0.5 ML NEBU INH (16:34)
[2025-09-20] MEDS: SODIUM CHLORIDE RT SOL 0.9% 3 ML NEBU INH (16:34)
[2025-09-20 17:51] LABS: Partial Thromboplastin Time 37.2 Seconds (22.0-36.0)
[2025-09-20 18:21] LABS: Troponin I 43.539 ng/mL (0.0-0.045)
[2025-09-20] MEDS: HEPARIN SOD INJ 5000 UNIT/ML VIAL 2000 UNIT IVP (18:46)
[2025-09-20] MEDS: METOPROLOL TARTRATE 25 MG TABLET PO (21:28)
[2025-09-20] MEDS: ATORVASTATIN CALCIUM 20 MG TABLET 80 MG PO (21:28)
[2025-09-20] MEDS: THIAMINE 100 MG TABLET PO (21:28)
[2025-09-20] MEDS: FOLIC ACID 1 MG TABLET PO (21:29)
[2025-09-21] VITALS (10 sets, daily range): BP systolic 110–135; BP diastolic 72–85; PULSE 56–76; RESP 16–22; TEMP 36.2–37.1; O2SAT 97–99; BMI 26.3
[2025-09-21 00:13] LABS: Partial Thromboplastin Time 42.2 Seconds (22.0-36.0)
[2025-09-21 00:15] LABS: Troponin I 18.833 ng/mL (0.0-0.045)
[2025-09-21] MEDS: HEPARIN SOD INJ 5000 UNIT/ML VIAL 2000 UNIT IV (01:52)
[2025-09-21 05:46] LABS: Basophils # (Auto) 0.1 Thou/mm3 (0.0-0.2); Basophils % (Auto) 1 % (0-2.5); Eosinophils # (Auto) 0.5 Thou/mm3 (0.0-0.5); Eosinophils % (Auto) 4 % (0-10); Hematocrit 45.6 % (41.0-53.0); Hemoglobin 15.6 g/dL (13.5-16.0); Immature Granulocytes Auto 0.06 Thou/mm3 (0.00-0.00); Lymphocytes # (Auto) 3.5 Thou/mm3 (1.0-4.8); Lymphocytes % (Auto) 30 % (10-50); Mean Corpuscular HGB Conc 34.2 g/dl (31.0-37.0); Mean Corpuscular Hemoglobin 31.5 pg (25.0-35.0); Mean Corpuscular Volume 92 fL (80-100); Monocytes # (Auto) 0.7 Thou/mm3 (0.0-0.8); Monocytes % (Auto) 6 % (0-12); Neutrophils # (Auto) 6.8 Thou/mm3 (1.8-7.7); Neutrophils % (Auto) 59 % (37-80); Nucleated Red Blood Cell # 0.00 Thou/mm3 (0.00-0.00); Nucleated Red Blood Cell % 0 /100 WBC (0); Platelet Count 201 Thou/mm3 (140-440); RDW Standard Deviation 47.7 fL (35.1-43.9); Red Blood Count 4.95 Miln/mm3 (4.50-5.90); White Blood Count 11.5 Thou/mm3 (3.8-10.6)
[2025-09-21 06:05] LABS: Glucose Estimated Average 140 mg/dL (80-131); Hemoglobin A1C 6.5 % Hgb (4.8-6.0)
[2025-09-21 06:17] LABS: Alanine Aminotransferase 30 U/L (10-49); Albumin, Serum 4.3 gm/dL (3.5-5.0); Albumin/Globulin Ratio 2.0 (1.2-2.2); Alkaline Phosphatase 90 U/L (46-116); Anion Gap 12 (7-16); Aspartate Amino Transferase 74 U/L (0-34); BUN/Creatinine Ratio 9 Ratio (12-20); Bilirubin,Total 0.9 mg/dL (0.3-1.2); Blood Urea Nitrogen 10 mg/dL (9-23); Calcium 8.9 mg/dL (8.3-10.6); Calcium (Corrected) 8.9 mg/dL (8.5-10.1); Carbon Dioxide 23.3 mMol/L (20.0-31.0); Cardiac Risk Estimate 6.7 RATIO (4.0-6.7); Chloride 107 mMol/L (98-107); Cholesterol 208 mg/dL (132-200); Creatinine (Component) 1.1 mg/dL (0.6-1.3); Estimated Creatinine Clearance 69.1 mL/min (>60); Globulin 2.2 gm/dL (2.3-3.5); Glucose 115 mg/dL (74-106); HDL Cholesterol 31 mg/dL (40-60); LDL Cholesterol,Calculated 149 mg/dL (0-130); Magnesium 2.2 mg/dL (1.6-2.6); Osmolality,Calculated 283 (275-295); Phosphorous 3.3 mg/dL (2.4-5.1); Potassium 3.9 mMol/L (3.4-5.1); Sodium 142 mMol/L (136-145); Thyroid Stimulating Hormone 1.58 uIU/mL (0.55-4.78); Total Protein 6.5 gm/dL (5.7-8.2); Triglycerides 139 mg/dL (30-150); eGFR > 60 See Note
[2025-09-21 06:18] LABS: Partial Thromboplastin Time 63.7 Seconds (22.0-36.0)
[2025-09-21] MEDS: THIAMINE 100 MG TABLET PO ×2 (09:34→20:14)
[2025-09-21] MEDS: FOLIC ACID 1 MG TABLET PO ×2 (09:34→20:14)
[2025-09-21] MEDS: METOPROLOL TARTRATE 25 MG TABLET PO ×2 (09:35→20:13)
[2025-09-21] MEDS: ASPIRIN EC 81 MG TABEC PO (09:39)
[2025-09-21] MEDS: CLOPIDOGREL BISULFATE 75 MG TABLET PO (09:39)
--- NOTE | 2025-09-21 11:14 | ESPR_ITS ---
Documentation for date of: 09/21/25 Subjective Subjective Interval history: Patient seen and assessed at bedside. Troponins downtrended overnight. No new complaints, denies chest pain or chest pressure, shortness of breath, and palpitations. Vitals stable, sinus rhythm on telemetry. Troponin downtrended overnight. Discussed cath results with patient and importance of tobacco cessation to reduce risk of recurrence. Patient can be discharged later tonight or tomorrow morning. Discharge with ASA 81 mg daily, Plavix 75 mg daily, metoprolol XL 25 mg daily, and atorvastatin 80 mg daily. Follow up 1 week in office. Exam Vital Signs Temp Pulse Resp BP Pulse Ox O2 Del Method 97.2 F 76 16 129/84 97 Room Air 09/21/25 07:20 09/21/25 09:35 09/21/25 07:20 09/21/25 09:35 09/21/25 07:20 09/21/25 07:20 Narrative Exam Physical Exam General: Awake and in no acute distress. Conversational and non-toxic appearing. HEENT: Normocephalic, atraumatic, mucous membranes moist. Heart: Regular rate and rhythm, normal S1 and S2, no murmurs. Lungs: Clear to auscultation with no wheezing or crackles. Abdomen: Soft, nondistended, nontender, positive bowel sounds. No guarding or rebound tenderness. Neurologic: Alert and oriented x3, no gross neurological deficit, and patient able to move all 4 extremities. Extremities: No edema. Skin: No rash or ecchymoses. Objective Labs 09/21/25 04:38 09/21/25 04:38 Labs: Laboratory Results - last 24 hr 09/20/25 09/20/25 09/20/25 11:03 17:22 23:38 WBC RBC Hgb Hct MCV MCH MCHC RDW Std Deviation Plt Count Neut % (Auto) Lymph % (Auto) [place] % (Auto) Eos % (Auto) Baso % (Auto) Neut # (Auto) Lymph # (Auto) [place] # (Auto) Eos # (Auto) Baso # (Auto) Immature Gran # (Auto) Absolute Nucleated RBC Immature Gran % Nucleated RBC % APTT 37.2 H Sodium Potassium Chloride Carbon Dioxide Anion Gap BUN Creatinine Estim Creat Clear Calc eGFR BUN/Creatinine Ratio Glucose Estimated Ave Glu mg/dL Hemoglobin A1c Calculated Osmolality Calcium Corrected Calcium Phosphorus Magnesium Total Bilirubin AST ALT Alkaline Phosphatase Troponin I 45.494 H* D 43.539 H* D 18.833 H* D Total Protein Albumin Globulin Albumin/Globulin Ratio Triglycerides Cholesterol LDL Cholesterol, Calc HDL Cholesterol Cholesterol/HDL Ratio TSH 09/20/25 09/21/25 23:42 04:38 WBC 11.5 H RBC 4.95 Hgb 15.6 Hct 45.6 MCV 92 MCH 31.5 MCHC 34.2 RDW Std Deviation 47.7 H Plt Count 201 Neut % (Auto) 59 Lymph % (Auto) 30 [place] % (Auto) 6 Eos % (Auto) 4 Baso % (Auto) 1 Neut # (Auto) 6.8 Lymph # (Auto) 3.5 [place] # (Auto) 0.7 Eos # (Auto) 0.5 Baso # (Auto) 0.1 Immature Gran # (Auto) 0.06 H Absolute Nucleated RBC 0.00 Immature Gran % 1 H Nucleated RBC % 0 APTT 42.2 H 63.7 H D Sodium 142 Potassium 3.9 Chloride 107 Carbon Dioxide 23.3 Anion Gap 12 BUN 10 Creatinine 1.1 Estim Creat Clear Calc 69.1 eGFR > 60 BUN/Creatinine Ratio 9 L Glucose [address] Glu mg/dL 140 H Hemoglobin A1c 6.5 H Calculated Osmolality 283 Calcium 8.9 Corrected Calcium 8.9 Phosphorus 3.3 Magnesium 2.2 Total Bilirubin 0.9 AST 74 H ALT 30 Alkaline Phosphatase 90 Troponin I Total Protein 6.5 Albumin 4.3 Globulin 2.2 L Albumin/Globulin Ratio 2.0 Triglycerides 139 Cholesterol 208 H LDL Cholesterol, Calc 149 H HDL Cholesterol 31 L Cholesterol/HDL Ratio 6.7 TSH 1.58 Quality Measures Quality Measures none Assessment & Plan Assessment Current Active Medications: Generic Name Dose Route Start Last Admin Trade Name Freq PRN Reason Stop Dose Admin Aspirin 81 mg 09/21/25 09:00 09/21/25 09:39 Aspirin Ec 81 Mg Tabec PO 10/21/25 08:59 81 mg QDAY TYRESE Administration Atorvastatin Calcium 40 mg 09/21/25 21:00 Atorvastatin Calcium 20 Mg Tablet PO 10/21/25 20:59 HS TYRESE Clopidogrel Bisulfate 75 mg 09/21/25 09:00 09/21/25 09:39 Clopidogrel Bisulfate 75 Mg Tablet PO 10/21/25 08:59 75 mg QDAY TYRESE Administration Folic Acid 1 mg 09/20/25 21:00 09/21/25 09:34 Folic Acid 1 Mg Tablet PO 09/25/25 20:59 1 mg BID TYRESE Administration Heparin Sodium/Dextrose 25,000 unit in 250 mls @ 8.61 mls/hr 09/20/25 18:00 09/21/25 01:53 Heparin In D5w Ivpb IV 09/22/25 17:59 14 units/kg/hr .Q24H TYRESE 10.045 mls/hr Protocol Titration 12 UNITS/KG/HR Lorazepam 0.5 mg 09/20/25 16:06 Lorazepam 0.5 Mg Tablet PO 09/25/25 16:05 Q4HR PRN CIWA Score 2-6 Lorazepam 1 mg 09/20/25 16:06 Lorazepam 0.5 Mg Tablet PO 09/25/25 16:05 Q4HR PRN CIWA SCORE 7-11 Lorazepam 2 mg 09/20/25 16:06 Lorazepam 0.5 Mg Tablet PO 09/25/25 16:05 Q4HR PRN CIWA SCORE 12-15 Metoprolol Tartrate 25 mg 09/20/25 21:00 09/21/25 09:35 Metoprolol Tartrate 25 Mg Tablet PO 10/20/25 20:59 25 mg BID TYRESE Administration Ondansetron HCl 4 mg 09/20/25 09:48 Ondansetron Inj 2 Mg/Ml Inj 2 Ml IVP 10/20/25 09:47 Q6H PRN NAUSEA OR VOMITING Protocol Sodium Chloride 3 ml 09/20/25 15:58 09/20/25 16:34 Sodium Chloride Rt Charissa 0.9% 3 Ml Nebu INH 10/20/25 15:57 3 ml PRN PRN Administration SOLN Thiamine HCl 100 mg 09/20/25 21:00 09/21/25 09:34 Thiamine 100 Mg Tablet PO 09/25/25 20:59 100 mg BID TYRESE Administration Plan Patient is a Kosovan speaking 50 year old male with PMH of tobacco abuse, alcohol abuse, family history of heart attack who presents on 09/20 for 10 out of 10 left-sided chest pain that radiated down his left arm earlier this morning. Admitted for NSTEMI and cardiac cath. #ACS #NSTEMI mostly type I #Hypertensive emergency, resolved #Family hx heart disease #Tobacco abuse #Alcohol abuse Presented with severe sudden onset of left-sided chest pain that radiated down his left arm prior to admission. No known medical history besides chronic tobacco and alcohol abuse. Note patient's mother had [place] in her 60s, stent placed. BP 202/160, HR 84, improved s/p labetolol x1. Troponin 2.879 -> 45.494 -> 43 -> 18. EKG at 4 AM showed sinus rhythm with Q waves in aVL and <[address] depression lead III, HR 82. Repeat EKG at around 10 AM showed T wave inversions in lead III with same Q waves. S/p ASA 325 mg x1, followed by IV heparin bolus and drip in ED. Lipid panel: Triglycerides 139, total cholesterol 208, LDL 149, HDL 31. TSH 1.58. A1c 6.5 Echo 09/20 showed normal LV function and size. Grade I diastolic dysfunction. Approximate EF 55-60%. Normal RV size and function. Mild aortic valve sclerosis without stenosis. Trace TR and MR. No pericardial effusion. Prior to procedure, discussed with patient the risk, benefits, and alternatives of performing a cardiac catherization including the risks of bleeding, heart attack, stroke, pericardial effusion, respiratory failure with mechanical ventilation, and in detail with the patient. Patient understands the risks and benfits with the procedure. Consent signed and placed in the chart. Cath 09/20/25: LHC showed moderate CAD 50-60% stenosis of mid diagonal 1, moderate 40-50% stenosis of mid LCx and rest of the arteries with mild disease as noted below. Mild 20 to 30% % stenosis of mid LAD, 30-40% stenosis of proximal diagonal 2, , minimal disease of OM1, mild stenosis of around 30% of the proximal RCA, distal RCA as well as RPL. Stenosis of mid RPDA, 20-30% stenosis of mid RPL. LVEF normal at 55-60% and LVEDP normal at 12 mmHg. No significant transvalvular aortic gradient. Score: ASCVD score: 24.4% risk of cardiovascular event in the next 10 years. Recommend moderate to high intensity statin. Plan: - Patient has many risk factors including age and significant history of tobacco and alcohol abuse. Patient also likely has uncontrolled HTN and HLD. Cath results above. - Continue IV heparin drip for 48 hours for anticoagulation given concern of ACS. - Recommend aspirin 325 mg x 1, aspirin 81 mg once daily, Plavix 75 mg daily, and high intensity statin, preferably atorvastatin 80 mg daily. - Metoprolol XL 25 mg daily if hemodynamically stable. Oxygen as needed and pain control with morphine if needed. - Counseled patient on smoking cessation to avoid further worsening of CAD. Thank you for your consultation, please do not hesitate to reach out if you have any question or concern Patient plan of care was discussed with the attending physician, Dr. Tavares. Em Sotomayor, PGY-1 Attending Provider Attestation/Addendum I have personally seen and examined the patient separately on the above date of service and discussed the plan of care with the resident. I reviewed the resident Dr. Em Sotomayor consultation progress note and agree with the resident findings and plan in the note above and have also edited the documentation to reflect my findings and plan. Francisco Tavares M.D. Interventional Cardiology
--- NOTE | 2025-09-21 15:18 | PC.SS ---
SS met with and patient regarding patient's d/c plan. Pt is alert/oriented. Pt was admitted for NStemi. Pt confirmed demographic and contact information is correct on facesheet. Pt resides with . Pt ambulates independently without assistance or DME. Pt is ok with all ADLs. 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 Patient?s pharmacy of choice is [facility]. Pt named his , Rachael Salguero medical decision maker if he is unable. Patient?s choice is to return home upon d/c. Pt states he is not diabetic and is not on dialysis. Pt states he does not have PCP. SS provided verbal choices for PCP to [facility], [facility], [facility], or [facility]. and pt prefer the [facility] with Dr. Salazar. SS called the [facility] and spoke to Dorinda who schedule pt an appointment for August, at 1:30pm with Dr. Salazar. SS provided pt with [facility] with appointment information. SS has called patient registration to update 's phone#. D/C plan: Return home Next of Kin: Rachael Salguero, , phone# [phone] PCP: Will establish at [facility] Address: Correct on facesheet
[2025-09-21 15:30] LABS: Partial Thromboplastin Time 47.3 Seconds (22.0-36.0)
[2025-09-21] MEDS: HEPARIN SOD INJ 5000 UNIT/ML VIAL 2000 UNIT IVP (16:33)
[2025-09-21] MEDS: Heparin/D5w 25K 250 ML Ivpb 25,000 UNIT/250 ML BAG 11.48 UNIT IV (19:48)
[2025-09-21] MEDS: ATORVASTATIN CALCIUM 20 MG TABLET 40 MG PO (20:13)
[2025-09-21 21:41] LABS: Partial Thromboplastin Time 60.8 Seconds (22.0-36.0)
[2025-09-22] VITALS: BP 122/82; PULSE 54; PULSE 56; RESP 15; TEMP 37.2; O2SAT 97
[2025-09-22 03:43] LABS: Partial Thromboplastin Time 58.4 Seconds (22.0-36.0)
[2025-09-22 04:00] VITALS: BP 140/84; PULSE 57; PULSE 59; RESP 14; TEMP 36.7; O2SAT 97
[2025-09-22 05:40] VITALS: BMI 25.9
[2025-09-22 06:23] LABS: Basophils # (Auto) 0.1 Thou/mm3 (0.0-0.2); Basophils % (Auto) 1 % (0-2.5); Eosinophils # (Auto) 0.4 Thou/mm3 (0.0-0.5); Eosinophils % (Auto) 4 % (0-10); Hematocrit 43.4 % (41.0-53.0); Hemoglobin 14.8 g/dL (13.5-16.0); Immature Granulocytes Auto 0.04 Thou/mm3 (0.00-0.00); Lymphocytes # (Auto) 3.3 Thou/mm3 (1.0-4.8); Lymphocytes % (Auto) 32 % (10-50); Mean Corpuscular HGB Conc 34.1 g/dl (31.0-37.0); Mean Corpuscular Hemoglobin 31.8 pg (25.0-35.0); Mean Corpuscular Volume 93 fL (80-100); Monocytes # (Auto) 0.6 Thou/mm3 (0.0-0.8); Monocytes % (Auto) 6 % (0-12); Neutrophils # (Auto) 5.8 Thou/mm3 (1.8-7.7); Neutrophils % (Auto) 57 % (37-80); Nucleated Red Blood Cell # 0.00 Thou/mm3 (0.00-0.00); Nucleated Red Blood Cell % 0 /100 WBC (0); Platelet Count 177 Thou/mm3 (140-440); RDW Standard Deviation 47.4 fL (35.1-43.9); Red Blood Count 4.66 Miln/mm3 (4.50-5.90); White Blood Count 10.2 Thou/mm3 (3.8-10.6)
[2025-09-22 06:33] LABS: Alanine Aminotransferase 26 U/L (10-49); Albumin, Serum 4.3 gm/dL (3.5-5.0); Albumin/Globulin Ratio 2.0 (1.2-2.2); Alkaline Phosphatase 86 U/L (46-116); Anion Gap 10 (7-16); Aspartate Amino Transferase 35 U/L (0-34); BUN/Creatinine Ratio 12 Ratio (12-20); Bilirubin,Total 0.6 mg/dL (0.3-1.2); Blood Urea Nitrogen 13 mg/dL (9-23); Calcium 9.1 mg/dL (8.3-10.6); Calcium (Corrected) 9.1 mg/dL (8.5-10.1); Carbon Dioxide 24.5 mMol/L (20.0-31.0); Chloride 109 mMol/L (98-107); Creatinine (Component) 1.1 mg/dL (0.6-1.3); Estimated Creatinine Clearance 69.1 mL/min (>60); Globulin 2.1 gm/dL (2.3-3.5); Glucose 135 mg/dL (74-106); Osmolality,Calculated 287 (275-295); Potassium 4.0 mMol/L (3.4-5.1); Sodium 143 mMol/L (136-145); Total Protein 6.4 gm/dL (5.7-8.2); eGFR > 60 See Note
[2025-09-22 06:39] LABS: INR 1.0 (0.9-1.3); Partial Thromboplastin Time 58.4 Seconds (22.0-36.0); Prothrombin Time 10.9 Seconds (9.0-12.2)
[2025-09-22 08:00] VITALS: BP 116/76; PULSE 60; PULSE 65; RESP 16; TEMP 37.1; O2SAT 99
--- NOTE | 2025-09-22 09:06 | PC.SS ---
Follow up note: Pt is d/c home today.
[2025-09-22] MEDS: ASPIRIN EC 81 MG TABEC PO (09:52)
[2025-09-22 09:53] VITALS: BP 132/83; PULSE 60
[2025-09-22 09:53] LABS: Partial Thromboplastin Time 46.0 Seconds (22.0-36.0)
[2025-09-22] MEDS: METOPROLOL TARTRATE 25 MG TABLET PO (09:53)
[2025-09-22] MEDS: NICOTINE PATCH 21 MG/24 HR PATCH.TD24 TOP (09:53)
[2025-09-22] MEDS: CLOPIDOGREL BISULFATE 75 MG TABLET PO (09:53)
[2025-09-22] MEDS: FOLIC ACID 1 MG TABLET PO (09:55)
[2025-09-22] MEDS: THIAMINE 100 MG TABLET PO (09:55)
--- NOTE | 2025-09-22 10:17 | PD.RESPRO ---
Documentation for date of: 09/22/25 Subjective Subjective Interval history: Patient seen and assessed at bedside. Doing well. No new complaints, denies any chest pain, shortness of breath, palpitations. Denies tremors, nausea, vomiting. Will discharge with ASA 81 mg daily, Plavix 75 mg daily, metoprolol XL 25 mg daily, and atorvastatin 80 mg daily. Follow up 1 week in office. Exam Vital Signs Temp Pulse Resp BP Pulse Ox O2 Del Method 98.9 F 56 L 19 141/89 H 98 Room Air 09/22/25 10:40 09/22/25 10:40 09/22/25 10:40 09/22/25 10:40 09/22/25 10:40 09/22/25 10:40 Narrative Exam Physical Exam General: Awake and in no acute distress. Conversational and non-toxic appearing. HEENT: Normocephalic, atraumatic, mucous membranes moist. Heart: Regular rate and rhythm, normal S1 and S2, no murmurs. Lungs: Clear to auscultation with no wheezing or crackles. Abdomen: Soft, nondistended, nontender, positive bowel sounds. No guarding or rebound tenderness. Neurologic: Alert and oriented x3, no gross neurological deficit, and patient able to move all 4 extremities. Extremities: No edema. Skin: No rash or ecchymoses. Objective Labs 09/22/25 05:16 09/22/25 05:16 Labs: Laboratory Results - last 24 hr 09/21/25 09/21/25 09/22/25 13:54 20:52 02:57 WBC RBC Hgb Hct MCV MCH MCHC RDW Std Deviation Plt Count Neut % (Auto) Lymph % (Auto) [place] % (Auto) Eos % (Auto) Baso % (Auto) Neut # (Auto) Lymph # (Auto) [place] # (Auto) Eos # (Auto) Baso # (Auto) Immature Gran # (Auto) Absolute Nucleated RBC Immature Gran % Nucleated RBC % PT INR APTT 47.3 H D 60.8 H D 58.4 H Sodium Potassium Chloride Carbon Dioxide Anion Gap BUN Creatinine Estim Creat Clear Calc eGFR BUN/Creatinine Ratio Glucose Calculated Osmolality Calcium Corrected Calcium Total Bilirubin AST ALT Alkaline Phosphatase Total Protein Albumin Globulin Albumin/Globulin Ratio 09/22/25 09/22/25 05:16 08:45 WBC 10.2 RBC 4.66 Hgb 14.8 Hct 43.4 MCV 93 MCH 31.8 MCHC 34.1 RDW Std Deviation 47.4 H Plt Count 177 Neut % (Auto) 57 Lymph % (Auto) 32 [place] % (Auto) 6 Eos % (Auto) 4 Baso % (Auto) 1 Neut # (Auto) 5.8 Lymph # (Auto) 3.3 [place] # (Auto) 0.6 Eos # (Auto) 0.4 Baso # (Auto) 0.1 Immature Gran # (Auto) 0.04 H Absolute Nucleated RBC 0.00 Immature Gran % 0 Nucleated RBC % 0 PT 10.9 INR 1.0 APTT 58.4 H 46.0 H D Sodium 143 Potassium 4.0 Chloride 109 H Carbon Dioxide 24.5 Anion Gap 10 BUN 13 Creatinine 1.1 Estim Creat Clear Calc 69.1 eGFR > 60 BUN/Creatinine Ratio 12 Glucose 135 H Calculated Osmolality 287 Calcium 9.1 Corrected Calcium 9.1 Total Bilirubin 0.6 AST 35 H ALT 26 Alkaline Phosphatase 86 Total Protein 6.4 Albumin 4.3 Globulin 2.1 L Albumin/Globulin Ratio 2.0 Quality Measures Quality Measures none Assessment & Plan Plan Patient is a Azeri speaking 50 year old male with PMH of tobacco abuse, alcohol abuse, family history of heart attack who presents on 09/20 for 10 out of 10 left-sided chest pain that radiated down his left arm earlier this morning. Admitted for NSTEMI and cardiac cath. #ACS #NSTEMI mostly type I #Hypertensive emergency, resolved #Family hx heart disease #Tobacco abuse #Alcohol abuse Presented with severe sudden onset of left-sided chest pain that radiated down his left arm prior to admission. No known medical history besides chronic tobacco and alcohol abuse. Note patient's mother had [place] in her 60s, stent placed. BP 202/160, HR 84, improved s/p labetolol x1. Troponin 2.879 -> 45.494 -> 43 -> 18. EKG at 4 AM showed sinus rhythm with Q waves in aVL and <[address] depression lead III, HR 82. Repeat EKG at around 10 AM showed T wave inversions in lead III with same Q waves. S/p ASA 325 mg x1, followed by IV heparin bolus and drip in ED. Lipid panel: Triglycerides 139, total cholesterol 208, LDL 149, HDL 31. TSH 1.58. A1c 6.5 Echo 09/20 showed normal LV function and size. Grade I diastolic dysfunction. Approximate EF 55-60%. Normal RV size and function. Mild aortic valve sclerosis without stenosis. Trace TR and MR. No pericardial effusion. Prior to procedure, discussed with patient the risk, benefits, and alternatives of performing a cardiac catherization including the risks of bleeding, heart attack, stroke, pericardial effusion, respiratory failure with mechanical ventilation, and in detail with the patient. Patient understands the risks and benfits with the procedure. Consent signed and placed in the chart. Cath 09/20/25: LHC showed moderate CAD 50-60% stenosis of mid diagonal 1, moderate 40-50% stenosis of mid LCx and rest of the arteries with mild disease as noted below. Mild 20 to 30% % stenosis of mid LAD, 30-40% stenosis of proximal diagonal 2, , minimal disease of OM1, mild stenosis of around 30% of the proximal RCA, distal RCA as well as RPL. Stenosis of mid RPDA, 20-30% stenosis of mid RPL. LVEF normal at 55-60% and LVEDP normal at 12 mmHg. No significant transvalvular aortic gradient. Score: ASCVD score: 24.4% risk of cardiovascular event in the next 10 years. Recommend moderate to high intensity statin. Plan: - Patient has many risk factors including age and significant history of tobacco and alcohol abuse. Patient also likely has uncontrolled HTN and HLD. Cath results above. - Continue IV heparin drip for 48 hours for anticoagulation given concern of ACS. - Continue aspirin 325 mg x 1, aspirin 81 mg once daily, Plavix 75 mg daily, and high intensity statin, preferably atorvastatin 80 mg daily. - Metoprolol XL 25 mg daily if hemodynamically stable. Oxygen as needed and pain control with morphine if needed. - Counseled patient on smoking cessation to avoid further worsening of CAD. Thank you for your consultation, please do not hesitate to reach out if you have any question or concern Patient plan of care was discussed with the attending physician, Dr. Tavares. Em Sotomayor, PGY-1 Attending Provider Attestation/Addendum I have personally seen and examined the patient separately on the above date of service and discussed the plan of care with the resident. I reviewed the resident Dr. Em Sotomayor consultation progress note and agree with the resident findings and plan in the note above and have also edited the documentation to reflect my findings and plan. Francisco Tavares M.D. Interventional Cardiology
[2025-09-22 10:40] VITALS: BP 141/89; PULSE 56; RESP 19; TEMP 37.2; O2SAT 98
--- NOTE | 2025-09-22 13:15 | ESDS_ITS ---
<Statement entered by Susana Vasquez MD - 09/25/25 15:24> I reviewed above note and agree with findings and plans. I have also personally examined the patient with medicine team and went over assessment and plan with medical team including product managent intern and resident physician. Planned Discharge Date 09/22/25 DS: Providers Provider Date of admission: 09/20/25 10:02 Primary care physician: Romeo Brito MD Admitting Provider: Susana Vasquez MD Attending Provider on Admission: Susana Vasquez MD Consults: 09/20/25 09:46 Consult to Cardiology Stat Comment: Consulting Provider: Francisco Tavares Attending Provider on DC: Edward Sandra MD Discharging Provider: Edward Sandra MD DS: Diagnosis Problem List Completed Was Problem List Reviewed/Reconciled?: Yes Hospital Course Hospital Course Hospital course: 50 year old male with history of tobacco dependence (>30 pack year), alcohol-use disorder, family history of stroke/heart attack presented to the ED on 09/20 with chest pain. In the ED, patient was in hypertensive emergency with blood pressure 202/106, heart rate 84, respiratory rate 19, afebrile satting 96 on serg m air. Pertinent lab findings include WBC of 13.1, hemoglobin of 15.4, creatinine 1.0, BUN 12, AST 42, ALT 19, troponin initially was 2.879 has up trended to 45.494, U tox was negative, EKG showed sinus rhythm with some ST elevations noted in the lateral leads and chest x-ray was largely negative. 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 Left heart cath was negative for any significant coronary artery stenosis requiring stent placement. Patient will complete IV heparin for an additional day and will be discharged once stable with aspirin, statin and Plavix. Patient will also be started on metoprolol succinate 25 mg by mouth daily and upon discharge on the following week will start on metformin 500 mg twice daily for diabetes. Patient otherwise denies having any concerning symptoms and understands that he will need to follow-up with cardiology once discharged. Continue take aspirin 81 mg by mouth daily, Plavix 75 mg by mouth daily, metoprolol succinate 25 mg p.o. once daily and Lipitor 40 mg by mouth at night for coronary artery disease Continue to take folic acid and thiamine and stop drinking alcohol completely Please take metformin 500 mg extended release tablets twice a day, starting on 09/25/2025 for diabetes, type II Use nicotine 21 mg patches once a day and stop smoking completely Please follow-up with cardiology, Dr. Tavares, for close follow-up after left heart catheterization Please follow-up with your PCP within 1 week of discharge or follow-up at the [facility] [address] [place] [address] If your symptoms worsen or if you develop new chest pain, shortness of breath, dizziness or loss of consciousness - please come back to the ED immediately Hospital Diagnosis: #NSTEMI type I, ruled out #Coronary spasm #Coronary artery disease #Hypertensive emergency, resolved #Hypertension #Newly diagnosed type 2 diabetes, [id number] #Hyperlipidemia #Alcohol use disorder #Tobacco dependence Edward Sandra, DO PGY-2 Internal Medicine - [facility] Status at Discharge Overall status at discharge: patient is progressing back to baseline Time Spent with Patient Time attestation: Total time spent providing and/or coordinating discharge services: 45 minutes Time spent: Greater than 30 minutes Exam Vital Signs Temp Pulse Resp BP Pulse Ox O2 Del Method 98.9 F 56 L 19 141/89 H 98 Room Air 09/22/25 10:40 09/22/25 10:40 09/22/25 10:40 09/22/25 10:40 09/22/25 10:40 09/22/25 10:40 Narrative Exam Physical Exam: GENERAL: Awake, answering questions appropriately in [place] HEENT: NC/AT. Moist mucosa. PERRLA/EOMI. Poor dentition. CARDIO: Heart RRR, no obvious murmurs, no JVD. PULM: No coughing or visible SOB. Lungs CTA B/L. GI: Abdomen soft, NT/ND, +BS. SKIN/MSK/EXT: No wounds/discoloration/rashes/edema/amputations. +Pedal pulses present B/L. NEURO: Oriented x3, Moves extremities x4, no focal neurologic deficits Discharge Plan Plan Patient Disposition: HOME (Self Care) Care Plan Goals: Continue take aspirin 81 mg by mouth daily, Plavix 75 mg by mouth daily, metoprolol succinate 25 mg p.o. once daily and Lipitor 40 mg by mouth at night for coronary artery disease Continue to take folic acid and thiamine and stop drinking alcohol completely Please take metformin 500 mg extended release tablets twice a day, starting on for diabetes, type II Use nicotine 21 mg patches once a day and stop smoking completely Please follow-up with cardiology, Dr. Tavares, for close follow-up after left heart catheterization Please follow-up with your PCP within 1 week of discharge or follow-up at the [facility] [address] [place] [address] If your symptoms worsen or if you develop new chest pain, shortness of breath, dizziness or loss of consciousness - please come back to the ED immediately Contin?e tomando aspirina 81 mg por v?a oral diariamente, Plavix 75 mg por v?a oral diariamente, succinato de metoprolol 25 mg por v?a oral. Eliana vez al d?a y Lipitor 40 mg por v?a oral por la noche para la enfermedad de la arteria coronaria. Contin?e tomando ?cido f?stefani y tiamina y deje de beber alcohol por completo. [place] metformina 500 mg en tabletas de liberaci?n prolongada dos veces al d?a, a partir del 25/09/2025 para la diabetes tipo II. Use parches de nicotina de 21 mg eliana vez al d?a y deje de fumar por completo. Consulte con el cardi?logo, Dr. Tavares, para un seguimiento cercano despu?s del cateterismo card?aco aguilar. Consulte con [facility] m?dico de cabecera dentro de la semana posterior al nighat o en el [facility], [address], [place] [address] . Si dimas s?ntomas empeoran o presenta dolor en el pecho, dificultad para respirar, mareos o p?rdida del conocimiento, regrese a urgencias de inmediato. Prescriptions/Referrals Prescriptions/Med Rec: New aspirin 81 mg Tablet,Delayed Release (Dr/Ec) 81 mg PO QDAY 30 Days Qty: 30 0RF atorvastatin [Lipitor] 40 mg tablet 40 mg PO HS 30 Days Qty: 30 0RF clopidogrel 75 mg Tablet 75 mg PO QDAY Qty: 21 0RF folic acid 1 mg Tablet 1 mg PO BID 30 Days Qty: 60 0RF nicotine 21 mg/24 hr Patch 24 Hour 21 mg top QDAY 30 Days Qty: 28 0RF thiamine mononitrate (vit B1) 100 mg Tablet 100 mg PO BID 30 Days Qty: 60 0RF metformin [Fortamet] 500 mg tablet extended release 24hr 500 mg PO BID 30 Days Qty: 60 0RF metoprolol succinate [Toprol XL] 25 mg tablet extended release 24 hr 25 mg PO QDAY 30 Days Qty: 30 0RF Referrals: Francisco Tavares MD [Physician, Cardiology] Romeo Brito MD [Primary Care Provider, Family Practice] Patient/Caregiver Discharge Instructions Education Materials: Nicotine Patch 21 mg, Coronary Angiography, Alcoholism Resources, Alcohol Withdrawal: What to Expect, Planning to Quit Smoking Print Language: [place]er Stand Alone Forms: [facility]aina Award Info., Patient Portal Info Letter Discharge Order Discharge Orders: Discharge (Routine); Ordered 09/22/25 Ordered By: Edward Sandra Quality Discharge Quality Measures VTE prophylaxis
--- NOTE | 2025-09-22 13:16 | ESPR_ITS ---
<Statement entered by Susana Vasquez MD - 09/25/25 15:24> I reviewed above note and agree with findings and plans. I have also personally examined the patient with medicine team and went over assessment and plan with medical team including internal recruiter and resident physician. Documentation for date of: 09/21/25 Subjective Subjective Interval history: Progress note for 09/21/2025: Patient seen and assessed in hospital bed denies having any concerning symptoms at this time. Left heart cath was negative for any significant coronary artery stenosis requiring stent placement. Patient will complete IV heparin for an additional day and will be discharged once stable with aspirin, statin and Plavix. Patient will also be started on metoprolol succinate 25 mg by mouth daily and upon discharge on the following week will start on metformin 500 mg twice daily for diabetes. Patient otherwise denies having any concerning symptoms and understands that he will need to follow-up with cardiology once discharged. Exam Vital Signs Temp Pulse Resp BP Pulse Ox O2 Del Method 98.9 F 56 L 19 141/89 H 98 Room Air 09/22/25 10:40 09/22/25 10:40 09/22/25 10:40 09/22/25 10:40 09/22/25 10:40 09/22/25 10:40 Narrative Exam Physical Exam: GENERAL: Awake, answering questions appropriately in Slovenian HEENT: NC/AT. Moist mucosa. PERRLA/EOMI. Poor dentition. CARDIO: Heart RRR, no obvious murmurs, no JVD. PULM: No coughing or visible SOB. Lungs CTA B/L. GI: Abdomen soft, NT/ND, +BS. SKIN/MSK/EXT: No wounds/discoloration/rashes/edema/amputations. +Pedal pulses present B/L. NEURO: Oriented x3, Moves extremities x4, no focal neurologic deficits Objective Labs 09/22/25 05:16 09/22/25 05:16 Labs: Laboratory Results - last 24 hr 09/21/25 09/21/25 09/22/25 13:54 20:52 02:57 WBC RBC Hgb Hct MCV MCH MCHC RDW Std Deviation Plt Count Neut % (Auto) Lymph % (Auto) [place] % (Auto) Eos % (Auto) Baso % (Auto) Neut # (Auto) Lymph # (Auto) [place] # (Auto) Eos # (Auto) Baso # (Auto) Immature Gran # (Auto) Absolute Nucleated RBC Immature Gran % Nucleated RBC % PT INR APTT 47.3 H D 60.8 H D 58.4 H Sodium Potassium Chloride Carbon Dioxide Anion Gap BUN Creatinine Estim Creat Clear Calc eGFR BUN/Creatinine Ratio Glucose Calculated Osmolality Calcium Corrected Calcium Total Bilirubin AST ALT Alkaline Phosphatase Total Protein Albumin Globulin Albumin/Globulin Ratio 09/22/25 09/22/25 05:16 08:45 WBC 10.2 RBC 4.66 Hgb 14.8 Hct 43.4 MCV 93 MCH 31.8 MCHC 34.1 RDW Std Deviation 47.4 H Plt Count 177 Neut % (Auto) 57 Lymph % (Auto) 32 [place]oup % (Auto) 6 Eos % (Auto) 4 Baso % (Auto) 1 Neut # (Auto) 5.8 Lymph # (Auto) 3.3 Loup # (Auto) 0.6 Eos # (Auto) 0.4 Baso # (Auto) 0.1 Immature Gran # (Auto) 0.04 H Absolute Nucleated RBC 0.00 Immature Gran % 0 Nucleated RBC % 0 PT 10.9 INR 1.0 APTT 58.4 H 46.0 H D Sodium 143 Potassium 4.0 Chloride 109 H Carbon Dioxide 24.5 Anion Gap 10 BUN 13 Creatinine 1.1 Estim Creat Clear Calc 69.1 eGFR > 60 BUN/Creatinine Ratio 12 Glucose 135 H Calculated Osmolality 287 Calcium 9.1 Corrected Calcium 9.1 Total Bilirubin 0.6 AST 35 H ALT 26 Alkaline Phosphatase 86 Total Protein 6.4 Albumin 4.3 Globulin 2.1 L Albumin/Globulin Ratio 2.0 Quality Measures Quality Measures none Assessment & Plan Plan 50 year old male with history of tobacco dependence (>30 pack year), alcohol-use disorder, family history of stroke/heart attack presented with chest pain was admitted for NSTEMI type I will be treated with IV heparin, Supervisor Drawing for likely stent placement and close follow-up. #NSTEMI type I, ruled out #Coronary spasm #Coronary artery disease Patient presenting with typical chest pain symptoms as noted above in HPI 53?points RA Score 0.8?% Probability of from admission to 6 months Will calculate ASCVD risk score troponin initially was 2.879 has up trended to 45.494 EKG showed sinus rhythm with some ST elevations noted in the lateral leads and chest x-ray was largely negative Cardiology was consulted and recommended starting patient on IV heparin to take to cardiac Supervisor Drawing for NSTEMI Left heart cath completed 09/20 showed moderate CAD 50-60% stenosis of the mid diagonal 1, moderate 40 to 50% stenosis of the mid LCx and remaining vessels had mild stenosis 20-40% and left ventricular ejection fraction was normal at 55 to 60% with normal LVEDP. Plan: Continue IV heparin drip for ACS for an additional day Aspirin, high intensity statin, Plavix, metoprolol tartrate 25 mg p.o. twice daily Cardiology consulted, appreciate recommendations status Keep magnesium greater than 2 and potassium greater than 4 Patient will need close monitoring outpatient and cardiology referral once ready to be discharged #Hypertensive emergency, resolved #Hypertension As noted above, patient presented with hypertensive emergency with a blood pressure of 202/106 and endorgan dysfunction noted by troponin anemia Patient was given labetalol 10 mg x 1 which largely improved systolic blood pressure to low 160 and diastolic in the 90s Plan: Patient not on any home antihypertensives, will follow-up with PCP and monitor for need #Newly diagnosed type 2 diabetes, [id number] #Hyperlipidemia Patient's A1c checked in the hospital is 6.5 and lipid panel shows total cholesterol 208, LDL 149, HDL of 31 Plan: Patient will continue on high intensity statin and upon discharge will be started on metformin 500 mg extended release twice a day starting 09/25 #Alcohol use disorder As per patient's family at bedside, patient drinks multiple glasses of tequila daily along with beer on the weekends Patient's last drink was yesterday noted to have three fourths of a cup of tequila CIWA protocol 7 0 Plan: Continue CIWA Counseled on complete alcohol cessation #Tobacco dependence Patient smokes around 1 pack a day for the past 30 years Plan: Will hold off on nicotine patch at this time Counseled on complete cessation from tobacco use Health Maintenance: Lines: PIV Diet: Will advance to cardiac Bowel: Not needed at this time GI prophylaxis: Not needed DVT prophylaxis: On heparin drip for 2 days Dispo: Pending cardiac clearance, left heart cath completed Code: Full Patient seen and assessed with attending Dr. Christina Sandra, DO PGY-2 Internal Medicine - GME
== END 2025-09-22 11:10 | disposition home or self-care (01) | DRG 281 ==
LOC: SERX 05:56 → SERHOLD 10:07 → S2NX 16:22
PROVIDERS: Internal Medicine Cardiovascular Disease; Physician Assistant; Admitting Provider Internal Medicine; Emergency Provider Emergency Medicine; PCP Family Medicine; Referring Provider Emergency Medicine; Visit Provider Internal Medicine
PROC: 4A023N7 Measurement of Cardiac Sampling and Pressure, Left Heart, Percutaneous Approach (ICD-10-PCS; principal; 2025-09-20 13:00)
DX: I21.4 Non-ST elevation (NSTEMI) myocardial infarction (principal); I16.1 Hypertensive emergency; I25.10 Atherosclerotic heart disease of native coronary artery without angina pectoris; F17.210 Nicotine dependence, cigarettes, uncomplicated; I10 Essential (primary) hypertension; F10.10 Alcohol abuse, uncomplicated; E11.9 Type 2 diabetes mellitus without complications; E78.5 Hyperlipidemia, unspecified; Z79.02 Long term (current) use of antithrombotics/antiplatelets; I35.8 Other nonrheumatic aortic valve disorders; Z79.82 Long term (current) use of aspirin; Z79.84 Long term (current) use of oral hypoglycemic drugs; Z79.899 Other long term (current) drug therapy; Z71.6 Tobacco abuse counseling
CPT/HCPCS: 36415; 71045; 80053; 80061; 80307; 83036; 83735; 84100; 84443; 84484; 85025; 85610; 85730; 93005; 93306; 94640; 96365; 96366; 99152; 99153; 99283; A4649; C1769; C1887; C1894; J0168; J0360; J0461; J1643; J1644; J2250; J2312; J2371; J3010; J3490; Q0162; Q9967; A9270; J2305

== ENCOUNTER 2025-09-27 13:24 | Outpatient (AMB) | payer BC, SELFPAY ==
--- NOTE | 2025-09-27 13:25 | ACNOTE_ITS ---
Vital Signs 09/27/25 13:32 Height 1.65 m Height Method Stated Weight 71.781 kg Weight Measurement Method Standing Scale BMI 26.3 BP 143/79 H Blood Pressure Source Automatic Cuff Position Sitting Respiration 16 Pulse 55 L Pulse Source Monitor Temp 97.5 F Temp Source Temporal Artery Scan Pulse Oximetry (%) 97 Oxygen Delivery Method Room Air Allergies/Meds Allergies & Medications Allergies No Known Allergies Allergy (Verified 09/27/25 13:34) Medication Reconciliation aspirin 81 mg tablet,delayed release 81 mg PO QDAY 1 month #30 tabs 09/22/25 [Rx Confirmed 09/27/25] atorvastatin 40 mg tablet (Lipitor) 40 mg PO HS 1 month #30 tabs 09/22/25 [Rx Confirmed 09/27/25] clopidogrel 75 mg tablet 75 mg PO QDAY #21 tabs 09/22/25 [Rx Confirmed 09/27/25] folic acid 1 mg tablet 1 mg PO BID 1 month #60 tabs 09/22/25 [Rx Confirmed 09/27/25] metformin 500 mg tablet,extended release 24hr (osmotic) (Fortamet) 500 mg PO BID 1 month #60 tabs 09/22/25 [Rx Confirmed 09/27/25] metoprolol succinate 25 mg tablet,extended release 24 hr (Toprol XL) 25 mg PO QDAY 1 month #30 tabs 09/22/25 [Rx Confirmed 09/27/25] nicotine 21 mg/24 hr daily transdermal patch 21 mg top QDAY 1 month #28 ea 09/22/25 [Rx Confirmed 09/27/25] thiamine mononitrate (vit B1) 100 mg tablet 100 mg PO BID 1 month #60 tabs 09/22/25 [Rx Confirmed 09/27/25] metformin 500 mg tablet 500 mg PO BIDWMEAL 1 month #60 tabs 09/27/25 [Rx] MA Intake Visit Data Collection New Patient or Established: Established Patient (seen at [facility] within 3 years) Seen by Clinical Staff ONLY (RN/MA): No Pain Present Currently: No Pain scale:: 0 Pain Scale Used: [employer]/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 Discussed the benefits of quitting smoking with patient. Encouraged patient to quit smoking and provided Cessation assistance materials and resources. Tobacco Use: Cigarette Years smoked: 30 Are you interested in quitting?: Yes Would you like additional Smoking Cessation Counseling?: No Immunization / Flu Flu Vaccine in the Last 12 Months: No Flu Vaccine Exclusion Criteria: No Exclusion Criteria Past Medical History Past Medical History CARDIAC: Negative Congestive Heart Failure RESPIRATORY: Negative Chronic Obstructive Pulmonary Disease (COPD) GENITOURINARY: Negative Renal Disease ENDOCRINE: Negative Diabetes Mellitus Type 1 or Diabetes Mellitus Type 2 OTHER HISTORY: Negative Autoimmune Disease Family History FAMILY HISTORY: Positive Family Cardiac Disorders, Family Cancer and Family Surgery; Negative Family Psychiatric Problems, Family Respiratory Disorders, Family Gastrointestinal Problems or Family Anesthesia Reaction Social History SMOKING STATUS: Smoking status: Light (< 1 pack/day) ALCOHOL: Alcohol Intake: Current ALCOHOL FREQUENCY: Alcohol Intake Frequency: 0-2 Drinks per Day HOUSING: Housing: House LIVES WITH: Lives With: Spouse Patient Portal Jeffrey Social History Living Situation History Housing: House Housing Other:: Pt lives with Tobacco History Smoking Status: Light (< 1 pack/day) Packs per Day: 1 Alcohol History Alcohol Intake: Current Alcohol Intake Frequency: 0-2 Drinks per Day Domestic Abuse History Do You Feel Safe at Home: Yes Review of Systems Report any current symptoms Only answer those that you have currently: Past Medical History Past Medical History Have you ever been diagnosed with any of the following: Cardiology Problems Congestive Heart Failure: No Respiratory Problems Chronic Obstructive Pulmonary Disease (COPD): No Genital/Urinary Problems Renal Disease: No Endocrine Problems Diabetes Mellitus Type 1: No Diabetes Mellitus Type 2: No Other Problems Autoimmune Disease: No History of Present Illness HPI Narrative A 50-year-old male with a history of tobacco dependence (>30 pack-year), alcohol use disorder, and a family history of stroke and heart attack. The patient was recently hospitalized for a non-STEMI and underwent coronary angiography. He now presents to the [facility] to establish care and for follow-up after discharge. Hospitalization History: On 09/19/2025, the patient was admitted with chief complaints of atypical chest pain. Troponin levels were elevated, and EKG revealed ST depression in the lateral leads. Cardiology was consulted promptly, and the patient underwent left heart catheterization [facility] revealed moderate coronary artery diseasewith: * 50-60% stenosis of the mid diagonal 1, * 40-50% stenosis of the mid LCx, * Mild disease in the remaining arteries, as follows: * 20-30% stenosis of the mid LAD, * 30-40% stenosis of the proximal diagonal 2, * Minimal disease in OM1, * Mild 30% stenosis in the proximal RCA, distal RCA, and RPL, * 20-30% stenosis of the mid RPDA and mid RPL. The left ventricular ejection fraction was normal at 55-60%, and the left ventricular end-diastolic pressure (LVEDP) was normal at 12 mmHg. No significant transvalvular aortic gradient was noted. Management and Discharge: The patient received medical management and remained stable. He was discharged with the following medications: * Aspirin, * Atorvastatin, * Plavix, * Metoprolol XL and was advised to continue aggressive risk factor modification, especially smoking cessation and alcohol use reduction. Clinic Visit: Today, the patient presents to establish care and follow up post-hospital discharge. The medication regimen was reviewed, with no changes required. Upon examination, the patient was hemodynamically stable but was found to be slightly bradycardic. It was discovered that the patient had been taking both Metoprolol XL and Metoprolol tartrate twice daily due to a pharmacy error. The patient was extensively counseled on how to correctly take his medication. He denied any dizziness, shortness of breath, or other side effects. The patient was advised to discontinue Metoprolol tartrate and continue with Metoprolol XL only. Additionally, the patient's A1c was noted to be borderline, and he was advised to start Metformin 500 mg twice daily to address his blood sugar levels. The patient will require ongoing management of risk factors, including blood pressure and blood sugar control. Blood pressure will continue to be closely monitored, and the patient may need an TIFFANY inhibitor or ARB if his blood pressure trends upward. For now, close monitoring will continue. He will have Cardiology follow up Tomorrow . Patient care was discussed with attending physician Dr. Sandra Ma MD PGY-3 I have carefully reviewed this document. Due to imperfections in the voice software, there could be grammatical errors including phonetic/typographic errors. This in no way compromises the medical care the patient is receiving Review of Systems Review of Systems Systems Reviewed: All systems reviewed, normal except as documented Objective/Exam Narrative Physical exam: GENERAL: no acute distress, AAO x3, thin male HEENT: Head AT/ NC. Mucous membranes moist. PERRL. NECK: Supple, no lymphadenopathy, no carotid bruits. CARDIOVASCULAR: RRR. Normal S1/S2, No m/r/g. No pitting edema of bilateral LEs. RESPIRATORY: CTAB. No wheezing, rhonchi, crackles. GASTROINTESTINAL: Abdomen soft, non tender no palpable masses. Bowel sounds present in all 4 quadrants. MUSCULOSKELETAL:? No cyanosis or edema, no visible joint swelling. NEUROLOGICAL: CN II-XII grossly intact. No focal deficits. Sensation intact, symmetric. PSYCHIATRIC: Awake and alert, not agitated, normal mood and affect. INTEGUMENTARY: No obvious rashes, no jaundice, normal turgor. Assessment & Plan Diagnosis / Problem List (1) CAD (coronary artery disease): Status: Acute Qualifiers: Coronary Disease-Associated Artery/Lesion type: due to calcified coronary lesion Qualified Code(s): I25.10 - Atherosclerotic heart disease of [place] coronary artery without angina pectoris; I25.84 - Coronary atherosclerosis due to calcified coronary lesion Plan: Aspirin, * Atorvastatin, * Plavix, * Metoprolol XL and was advised to continue aggressive risk factor modification, especially smoking cessation and alcohol use reduction. Follow-up with cardiology, recommendations appreciated (2) Tobacco dependence: Status: Acute Plan: Continue using nicotine patch Was extensively counseled regarding side effects of smoking (3) Type 2 diabetes mellitus: Status: Acute Qualifiers: Diabetes mellitus complication status: with circulatory complication Plan: A1c noted to be 6.5 Patient started on metformin 500 mg twice daily Will repeat A1c in 3 months Office Procedures [facility] Level of Care Nursing/Assessment Patient Status: Established Patient Nursing Assessment/Reassessment: Medication Reconciliation, Update PMH in EMR and Vital Signs Coordination of Care: Complex Care/Chronic Disease 5 or more, Education Complex Pt/Fam, Consent,records obtained, informed consent, Lab and Imaging orders, Res ults/Orders obtained and Staff clarify orders Established Patient Charge Established Patient Point Assignment: 120 Established Patient Point Charge: Level 4 (120-155) TB Screening LTBI Screening: Has patient traveled, was born, or resided for at least 1 month, or frequent border crossing into a country with an elevated TB rate: No Immunosuppression, current or planned (HIV, organ transplant, treated with biologic agents, steroids, or other immunosuppression medication): No Close contact to someone with infectious TB disease during lifetime: No Homelessness or incarceration, current or past: No TB testing indicated at this time (at least 1 yes above): No
[2025-09-27 13:32] VITALS: BP 143/79; PULSE 55; RESP 16; TEMP 36.4; O2SAT 97; BMI 26.3
== END 2025-09-27 14:20 | disposition home or self-care (01) ==
LOC: HODAHC 13:24
PROVIDERS: Supervising Provider Internal Medicine; Visit Provider Student in an Organized Health Care Education/Training Program
DX: I25.10 Atherosclerotic heart disease of native coronary artery without angina pectoris (principal); F17.210 Nicotine dependence, cigarettes, uncomplicated; E11.9 Type 2 diabetes mellitus without complications; Z79.84 Long term (current) use of oral hypoglycemic drugs
CPT/HCPCS: 99214; G0463